=== PATIENT | female | born 1990 | race African-American/Black ===

== ENCOUNTER 2018-02-12 23:21 | Emergency (ER) | payer MEDICAID | END 2018-02-13 | disposition left against medical advice (07) | LOC: ER 23:45 | DX: Z53.21 Procedure and treatment not carried out due to patient leaving prior to being seen by health care provider (principal) ==

== ENCOUNTER 2018-08-24 12:02 | Observation (INO) | payer MEDICAID ==
[~2018-08-24] VITALS: Ht 165.1 cm; Wt 139.7 kg
[2018-08-24 13:17] LABS: CLARITY URINE CLOUDY (CLEAR); COLOR URINE YELLOW (YELLOW); KETONES URINE NEGATIVE (NEGATIVE); LEUKOCYTE ESTERASE URINE 3+ (NEGATIVE); NITRITE URINE NEGATIVE (NEGATIVE); OCCULT BLOOD URINE TRACE (NEGATIVE); PH URINE 5.5 (4.5-8.0); PROTEIN URINE TRACE (NEGATIVE); SPECIFIC GRAVITY URINE 1.019 (1.005-1.030)
[2018-08-24] MEDS ORDERED: CEFTRIAXONE SODIUM 250 MG/VIAL IM NR (14:00)
[2018-08-24 14:20] LABS: *BARBITURATES SCREEN URINE NEGATIVE (NEGATIVE); *BENZODIAZEPINES SCREEN URINE NEGATIVE (NEGATIVE); *COCAINE SCREEN URINE NEGATIVE (NEGATIVE)
[2018-08-24 14:21] LABS: CANNABINOID URINE SCREEN NEGATIVE (NEGATIVE); METHADONE URINE SCREEN NEGATIVE (NEGATIVE); OPIATES URINE SCREEN NEGATIVE (NEGATIVE); PHENCYCLIDINE URINE SCREEN NEGATIVE (NEGATIVE)
[2018-08-24 14:32] LABS: *AMPHETAMINES SCREEN URINE PRESUMTIVE POSITIVE (NEGATIVE)
[2018-08-29 13:07] LABS: AMPHETAMINE CONF URINE Positive (.)
== END 2018-08-24 14:58 | disposition home or self-care (01) ==
LOC: 8 EST LDRP 12:02
PROVIDERS: ADMIT Obstetrics & Gynecology; ATTEND Obstetrics & Gynecology
DX: O62.9 Abnormality of forces of labor, unspecified (principal); Z3A.37 37 weeks gestation of pregnancy
CPT/HCPCS: 80305; 80307; 80359; 81003; 87086; 96372; 99281; G0378; J0696